=== PATIENT | male | born 1960 | race Caucasian/White ===

== ENCOUNTER → 2018-08-21 | Outpatient (CLI) | payer BC, OTHER ==
[2018-08-21 15:46] LABS: DIRECT BILIRUBIN 0.4 mg/dL (0.0-0.4); TOTAL BILIRUBIN 1.3 mg/dL (0.2-1.3); TOTAL PROTEIN 6.5 g/dL (6.3-8.2)
== END ==
LOC: LAB 15:11
PROVIDERS: Physician Assistant
DX: Z79.899 Other long term (current) drug therapy (principal)

== ENCOUNTER → 2018-09-18 | Outpatient (CLI) | payer BC, OTHER ==
[2018-09-18 16:59] LABS: ALBUMIN 4.3 g/dL (3.5-5.0); DIRECT BILIRUBIN 0.4 mg/dL (0.0-0.4); TOTAL BILIRUBIN 0.7 mg/dL (0.2-1.3)
== END ==
LOC: LAB 15:53
PROVIDERS: Physician Assistant
DX: Z79.899 Other long term (current) drug therapy (principal)

== ENCOUNTER → 2018-10-11 | Outpatient (CLI) | payer BC, OTHER | LOC: RAD 10:22 | DX: J45.30 Mild persistent asthma, uncomplicated (principal); G47.33 Obstructive sleep apnea (adult) (pediatric); R91.8 Other nonspecific abnormal finding of lung field ==

== ENCOUNTER → 2018-11-20 | Day surgery (SDC) | payer OTHER, BC | LOC: MSO 11:56 | DX: Z12.11 Encounter for screening for malignant neoplasm of colon (principal); K62.1 Rectal polyp; Z86.010 Personal history of colon polyps; K21.9 Gastro-esophageal reflux disease without esophagitis; Z79.82 Long term (current) use of aspirin; E78.00 Pure hypercholesterolemia, unspecified; Z87.891 Personal history of nicotine dependence; G47.33 Obstructive sleep apnea (adult) (pediatric); J45.909 Unspecified asthma, uncomplicated; M72.2 Plantar fascial fibromatosis | CPT/HCPCS: 00811; J2704; J3010; J7120 ==

== ENCOUNTER → 2018-12-20 | Outpatient (CLI) | payer OTHER, BC ==
[2018-12-20 16:54] LABS: EOS # 0.2 (0.04-0.40); EOS % 3.3 % (0.0-4.0); HEMATOCRIT 43.7 % (42.0-52.0); LYMPH# 0.9 (1.50-4.00); MEAN CELL VOLUME 87 fl (78-100); MEAN CORPUSCULAR HEMOGLOBIN 30 pg (27-31); MEAN CORPUSCULAR HGB CONC 34 g/dL (33-37); MEAN PLATELET VOLUME 8.6 fl (7.4-10.4); MONO # 0.4 (0.20-0.80); NEU # 3.4 (1.40-6.50); PLATELET COUNT 183 K/mm3 (130-400); RED BLOOD COUNT 5.03 M/mm3 (4.20-5.60); RED CELL DISTRIBUTION WIDTH 14.6 % (11.5-14.5); WHITE BLOOD COUNT 4.9 K/mm3 (4.8-10.8)
[2018-12-20 17:13] LABS: ALBUMIN 4.3 g/dL (3.5-5.0); CALCIUM 9.3 mg/dL (8.3-10.5); POTASSIUM 3.7 mmol/L (3.5-5.1); TOTAL BILIRUBIN 0.8 mg/dL (0.2-1.2); TOTAL PROTEIN 7.1 g/dL (6.4-8.3)
== END ==
LOC: LAB 16:34
PROVIDERS: Physician Assistant
DX: L03.90 Cellulitis, unspecified (principal); S80.869A Insect bite (nonvenomous), unspecified lower leg, initial encounter; R10.30 Lower abdominal pain, unspecified

== ENCOUNTER → 2020-03-18 | Outpatient (CLI) | payer BC, OTHER | LOC: LAB 10:31 | DX: Z20.828 Contact with and (suspected) exposure to other viral communicable diseases (principal) ==

== ENCOUNTER → 2021-02-05 | Outpatient (CLI) | payer BC, OTHER ==
[~2021-02-05] MED LIST: MORGIDOX 1X100100 MG PO; PREDNISONE20 M1 PO; PRILOSEC 20MG20 MG PO; PROAIR HFA0.09 MG/AC IH; SINGULAIR 110 MG/TAB PO; SYMBICORT1 AE3 IH
[2021-02-05 10:17] LABS: BASO # 0.02 (0.02-0.10); EOS # 0.07 (0.04-0.40); EOS % 1.5 % (0.0-4.0); HEMATOCRIT 44.1 % (42.0-52.0); HEMOGLOBIN 14.8 g/dL (13.5-18.0); LYMPH# 0.85 (1.50-4.00); MEAN CELL VOLUME 87 fl (78-100); MEAN CORPUSCULAR HEMOGLOBIN 29 pg (27-31); MEAN CORPUSCULAR HGB CONC 34 g/dL (33-37); MEAN PLATELET VOLUME 8.7 fl (7.4-10.4); MONO # 0.44 (0.20-0.80); NEU # 3.41 (1.40-6.50); PLATELET COUNT 169 K/mm3 (130-400); RED BLOOD COUNT 5.08 M/mm3 (4.20-5.60); RED CELL DISTRIBUTION WIDTH 13.5 % (11.5-14.5); WHITE BLOOD COUNT 4.8 K/mm3 (4.8-10.8)
[2021-02-05 10:18] LABS: ALBUMIN 4.2 g/dL (3.4-4.8)
[2021-02-05 10:19] LABS: CALCIUM 9.2 mg/dL (8.3-10.5)
[2021-02-05 10:21] LABS: TOTAL PROTEIN 7.1 g/dL (6.2-8.1)
[2021-02-05 10:22] LABS: TOTAL BILIRUBIN 0.7 mg/dL (0.2-1.2)
== END ==
LOC: LAB 09:52
PROVIDERS: Physician Assistant
DX: R22.1 Localized swelling, mass and lump, neck (principal)

== ENCOUNTER → 2021-02-09 | Outpatient (CLI) | payer BC, OTHER | LOC: RAD 13:51 | DX: R22.1 Localized swelling, mass and lump, neck (principal) ==

== ENCOUNTER → 2021-05-17 | Outpatient (CLI) | payer BC, OTHER | LOC: LAB 09:10 | DX: Z20.822 Contact with and (suspected) exposure to COVID-19 (principal) ==

== ENCOUNTER 2021-05-24 18:14 | Emergency (ER) | payer BC, OTHER ==
[~2021-05-24] VITALS: Ht 180.3 cm; Wt 127.3 kg
[2021-05-24 18:44] LABS: BASO # 0.02 K/mm3 (0.02-0.10); EOS # 0.05 K/mm3 (0.04-0.40); EOS % 0.3 % (0.0-4.0); HEMATOCRIT 40.1 % (42.0-52.0); HEMOGLOBIN 13.8 g/dL (13.5-18.0); LYMPH# 1.07 K/mm3 (1.50-4.00); MEAN CELL VOLUME 87 fl (78-100); MEAN CORPUSCULAR HEMOGLOBIN 30 pg (27-31); MEAN CORPUSCULAR HGB CONC 34 g/dL (33-37); MEAN PLATELET VOLUME 8.4 fl (7.4-10.4); MONO # 0.68 K/mm3 (0.20-0.80); NEU # 12.69 K/mm3 (1.40-6.50); PLATELET COUNT 236 K/mm3 (130-400); RED BLOOD COUNT 4.63 M/mm3 (4.20-5.60); RED CELL DISTRIBUTION WIDTH 12.6 % (11.5-14.5); WHITE BLOOD COUNT 14.6 K/mm3 (4.8-10.8)
[2021-05-24 18:58] LABS: ALBUMIN 3.7 g/dL (3.4-4.8); SODIUM 135 mmol/L (136-145)
[2021-05-24 19:00] LABS: CALCIUM 9.1 mg/dL (8.3-10.5)
[2021-05-24 19:01] LABS: GLUCOSE 108 mg/dL (75-110); TOTAL PROTEIN 7.1 g/dL (6.2-8.1)
[2021-05-24 19:02] LABS: CARBON DIOXIDE 19 mmol/L (23-31)
[2021-05-24 19:03] LABS: TOTAL BILIRUBIN 0.9 mg/dL (0.2-1.2)
[2021-05-24 19:06] LABS: AST-SGOT 29 U/L (5-34)
[2021-05-24 19:07] LABS: ALT/SGPT 53 U/L (0-55); PARTIAL THROMBOPLASTIN TIME 24.8 SECONDS (21.0-32.0); PROTHROMBIN TIME 10.7 SECONDS (9.0-12.0)
[2021-05-24 19:09] LABS: D-DIMER 1.27 mg/L FEU (0.15-0.50)
[2021-05-24 19:16] LABS: TROPONIN-I < 0.03 ng/mL (<0.030)
[2021-05-24 20:46] LABS: URINE APPEARANCE CLEAR; URINE BILIRUBIN NEGATIVE (NEGATIVE); URINE BLOOD NEGATIVE (NEGATIVE); URINE COLOR AMBER; URINE GLUCOSE NEGATIVE (NEGATIVE); URINE KETONE NEGATIVE (NEGATIVE); URINE LEUKOCYTE ESTERASE NEGATIVE (NEGATIVE); URINE NITRATE NEGATIVE (NEGATIVE); URINE PROTEIN(semi-quant) TRACE mg/dL (NEGATIVE); URINE UROBILINOGEN NORMAL (NORMAL); URINE WBC 0-1 /hpf (0-3)
[2021-05-24 20:47] LABS: URINE MUCUS PRESENT (NOT PRESENT)
[2021-05-24 21:00] VITALS: BP 129/78
[2021-05-24] MEDS ORDERED: MORGIDOX 1X100100 MG PO ×2 (21:49→21:50)
[2021-05-24] MEDS ORDERED: PREDNISONE20 M1 PO ×2 (21:49→21:50)
[2021-05-24] MEDS ORDERED: SINGULAIR 110 MG/TAB PO (23:37)
[2021-05-24] MEDS ORDERED: PROAIR HFA0.09 MG/AC IH (23:37)
[2021-05-24] MEDS ORDERED: PRILOSEC 20MG20 MG PO (23:37)
[2021-05-24] MEDS ORDERED: SYMBICORT1 AE3 IH (23:39)
== END 2021-05-24 21:15 | disposition home or self-care (01) ==
LOC: ED 18:14
PROVIDERS: Nurse Practitioner
DX: J18.9 Pneumonia, unspecified organism (principal); K21.9 Gastro-esophageal reflux disease without esophagitis; E66.9 Obesity, unspecified; Z20.822 Contact with and (suspected) exposure to COVID-19; Z68.39 Body mass index [BMI] 39.0-39.9, adult; Z79.899 Other long term (current) drug therapy
CPT/HCPCS: Q9967

== ENCOUNTER → 2021-07-01 | Outpatient (CLI) | payer BC, OTHER | LOC: RAD 06-30 09:00 | DX: K80.20 Calculus of gallbladder without cholecystitis without obstruction (principal); J12.9 Viral pneumonia, unspecified | CPT/HCPCS: Q9967 ==

== ENCOUNTER → 2022-09-13 | Outpatient (CLI) | payer BC, OTHER | LOC: LAB 13:29 | DX: R19.7 Diarrhea, unspecified (principal) ==

== ENCOUNTER → 2022-09-14 | Outpatient (CLI) | payer BC, OTHER | LOC: LAB 09:43 | PROVIDERS: Internal Medicine Gastroenterology | DX: R19.7 Diarrhea, unspecified (principal) ==

== ENCOUNTER 2023-11-09 07:47 | Inpatient (IN) | payer OTHER ==
[~2023-11-09] VITALS: Ht 185.4 cm; Wt 134.9 kg
[2023-11-09] MEDS ORDERED: SILDENAFIL CIT100 MG PO (08:08)
[2023-11-09] MEDS ORDERED: WIXELA 500-501 EACH IH (08:08)
[2023-11-09] MEDS ORDERED: ROSUVASTATIN CA10 MG PO (08:08)
[2023-11-09 08:21] LABS: ALBUMIN 3.8 g/dL (3.4-4.8)
[2023-11-09 08:22] LABS: SODIUM 136 mmol/L (136-145)
[2023-11-09 08:23] LABS: CALCIUM 9.3 mg/dL (8.3-10.5)
[2023-11-09] MEDS ORDERED: MULTIVITAMIN1 EACH PO (08:23)
[2023-11-09 08:24] LABS: GLUCOSE 113 mg/dL (75-110); TOTAL PROTEIN 7.2 g/dL (6.2-8.1)
[2023-11-09 08:25] LABS: CARBON DIOXIDE 20 mmol/L (23-31)
[2023-11-09 08:26] LABS: TOTAL BILIRUBIN 0.6 mg/dL (0.2-1.2)
[2023-11-09 08:29] LABS: AST-SGOT 21 U/L (5-34)
[2023-11-09 08:31] LABS: ALT/SGPT 27 U/L (0-55)
[2023-11-09 08:47] LABS: BASO # 0.02 K/mm3 (0.02-0.10); EOS # 0.03 K/mm3 (0.04-0.40); EOS % 0.3 % (0.0-4.0); HEMATOCRIT 40.2 % (42.0-52.0); HEMOGLOBIN 13.4 g/dL (13.5-18.0); LYMPH# 0.71 K/mm3 (1.50-4.00); MEAN CELL VOLUME 81 fl (78-100); MEAN CORPUSCULAR HEMOGLOBIN 27 pg (27-31); MEAN CORPUSCULAR HGB CONC 33 g/dL (33-37); MEAN PLATELET VOLUME 9.9 fl (7.4-10.4); MONO # 0.43 K/mm3 (0.20-0.80); NEU # 7.85 K/mm3 (1.40-6.50); PLATELET COUNT 186 K/mm3 (130-400); RED BLOOD COUNT 4.96 M/mm3 (4.20-5.60); RED CELL DISTRIBUTION WIDTH 14.1 % (11.5-14.5); WHITE BLOOD COUNT 9.1 K/mm3 (4.8-10.8)
[2023-11-09 08:54] LABS: TROPONIN-I < 0.030 ng/mL (0.00-0.033)
[2023-11-09 09:00] LABS: D-DIMER 1.25 mg/L FEU (0.15-0.50)
[2023-11-09] MEDS ORDERED: Albuterol/Ipratropium 3 MG-0.5 MG/3 ML Neb Soln IH ONE (09:00)
[2023-11-09] MEDS ORDERED: NS 1,000 ML IV SCH (09:00)
[2023-11-09] MEDS ORDERED: cefTRIAXone 1 G in Water For Injection,Sterile 10 ML IV ONE (09:00)
[2023-11-09] MEDS ORDERED: Iohexol 350 - 100 ML VIAL IV ONE (09:54)
[2023-11-09 10:00] VITALS: BP 132/75
[2023-11-09] MEDS ORDERED: Azithromycin 500 MG in NS 250 ML IV SCH (10:00)
[2023-11-09] MEDS ORDERED: Acetaminophen 325 MG TAB PO PRN (10:00)
--- NOTE | 2023-11-09 10:00 | NUR ---
PATIENT ADMITTED FROM ED WITH RLL PNEUMONIA. IV PATENT TO LEFT FOREARM, NS RUNNING AT 125ML/HR. PENDING CHEST CT RESULTS AT THIS TIME. PATIENT ON 5L VIA SIMPLE MASK, O2 SATURATION AT 94%. TELEMETRY IN PLACE, NSR TACHYCARDIC 100-110s. CONTINUOUS O2 IN PLACE. ASSESSMENT COMPELTED. PATIENT ORIENTED TO ROOM AND HOSPITAL POLICIES. VERBALIZED UNDERSTANDING. PATIENT REPORTS IS TO BRING CPAP. PENDING BLOOD CUTLURES AT THIS TIME. NEEDS MET. FALL PRECAUTIONS IN PLACE.
[2023-11-09] MEDS ORDERED: Albuterol/Ipratropium 3 MG-0.5 MG/3 ML Neb Soln IH PRN (10:15)
--- NOTE | 2023-11-09 10:45 | NUR ---
PATIENTS PITO BRINGS IN CPAP AT THIS TIME.
[2023-11-09 13:59] VITALS: BP 133/70
[2023-11-09] MEDS ORDERED: Albuterol 90 MCG/PUFF MDI IH PRN (14:30)
[2023-11-09 17:46] VITALS: BP 146/77
--- NOTE | 2023-11-09 19:07 | NUR ---
REPORT TO ELIUD SIMON.
[2023-11-09 22:10] VITALS: BP 145/82
--- NOTE | 2023-11-09 22:50 | NUR ---
PT RESTING COMFORTABLY IN BED. STATED THAT HE WAS BREATING A LOT BETTER THAN HE WAS EARLIER TODAY. O2 RUNNING AT 5L VIA NC. MEDICATION TAKEN PO. ASSESSMENT COMPLETE. CPAP DID NOT HAVE ATTACHEMENT TO BLEED OXYGEN. TALKED WITH PT ABOUT THIS AND HE SAID HE WOULD JUST WEAR HIS NC UNDER HIS MASK. WILL MONITOR O2 LEVELS. SAT STAYING ABOVE 96. 3/10 PAIN IN BACK. PT TO BRING INHALER IN THE AM. 18 Gauge in LAC. CALL LIGHT WITHIN REACH.
[2023-11-10 01:34] VITALS: BP 138/77
[2023-11-10 05:53] VITALS: BP 131/73
[2023-11-10] MEDS ORDERED: cefTRIAXone 1 G in Water For Injection,Sterile 10 ML IV SCH (07:00)
[2023-11-10 07:53] LABS: BASO # 0.02 K/mm3 (0.02-0.10); EOS # 0.04 K/mm3 (0.04-0.40); EOS % 0.4 % (0.0-4.0); HEMATOCRIT 34.3 % (42.0-52.0); LYMPH# 0.69 K/mm3 (1.50-4.00); MEAN CELL VOLUME 83 fl (78-100); MEAN CORPUSCULAR HEMOGLOBIN 27 pg (27-31); MEAN CORPUSCULAR HGB CONC 33 g/dL (33-37); MEAN PLATELET VOLUME 8.7 fl (7.4-10.4); MONO # 0.48 K/mm3 (0.20-0.80); NEU # 7.75 K/mm3 (1.40-6.50); PLATELET COUNT 215 K/mm3 (130-400); RED BLOOD COUNT 4.16 M/mm3 (4.20-5.60)
[2023-11-10 08:00] LABS: CALCIUM 8.9 mg/dL (8.3-10.5)
[2023-11-10 08:11] LABS: HEMOGLOBIN 11.4 g/dL (13.5-18.0)
[2023-11-10] MEDS ORDERED: Multivitamin TAB PO SCH (09:00)
[2023-11-10 09:23] VITALS: BP 132/77
--- NOTE | 2023-11-10 13:22 | NUR ---
Jl is retired. He is to his bride, Bev. He uses [facility] as his pharmacy. He does not use and DME at home. He is independent on all ADL's He would like to go home after discharge. His PCP Suzanne Cherry.
[2023-11-10 14:00] VITALS: BP 114/69
--- NOTE | 2023-11-10 14:50 | NUR ---
PATIENT ABLE TO MAINTAIN OXYGEN LEVEL OF 94% ON ROOM AIR WITH AMBUALTION. OXYGEN REMOVED AT THIS TIME AND CONTINUOUS O2 MONITORING REMAINS.
[2023-11-10 18:15] VITALS: BP 125/73
--- NOTE | 2023-11-10 19:00 | NUR ---
REPORT TO ELIUD SCHULZ.
[2023-11-10] MEDS ORDERED: Montelukast 10 MG TAB PO SCH (21:00)
[2023-11-10 22:00] VITALS: BP 147/79
[2023-11-11 02:33] VITALS: BP 135/63
[2023-11-11 06:04] VITALS: BP 135/74
[2023-11-11 10:15] VITALS: BP 137/77
--- NOTE | 2023-11-11 10:53 | NUR ---
Pt getting into the shower with SBA help from [employer]. All tele stickers have been removed and the 02 sensor has been taken off. Pt is ranging between 90%-92% RA. Per Dr. Son mas to remove tele and D/C orders. Pt was given a pulse ox and educated on when and how to use it. Pt educated to call for a nurse if his O2 gets under 90% if the level does not increase after a few deep breaths. Pt and spouse voices understanding. Advised to call for nurse if they have any questions or cocnerns.
[2023-11-11 14:09] VITALS: BP 123/74
[2023-11-11 18:01] VITALS: BP 137/81
[2023-11-11 21:40] VITALS: BP 147/80
[2023-11-12] VITALS (7 sets, daily range): BP systolic 110–154; BP diastolic 68–84
[2023-11-12 06:37] LABS: BASO # 0.02 K/mm3 (0.02-0.10); EOS # 0.11 K/mm3 (0.04-0.40); EOS % 1.4 % (0.0-4.0); HEMATOCRIT 36.7 % (42.0-52.0); LYMPH# 0.67 K/mm3 (1.50-4.00); MEAN CELL VOLUME 82 fl (78-100); MEAN CORPUSCULAR HEMOGLOBIN 27 pg (27-31); MEAN CORPUSCULAR HGB CONC 33 g/dL (33-37); MEAN PLATELET VOLUME 8.5 fl (7.4-10.4); MONO # 0.42 K/mm3 (0.20-0.80); NEU # 6.54 K/mm3 (1.40-6.50); PLATELET COUNT 256 K/mm3 (130-400); RED BLOOD COUNT 4.48 M/mm3 (4.20-5.60); RED CELL DISTRIBUTION WIDTH 13.8 % (11.5-14.5); WHITE BLOOD COUNT 7.8 K/mm3 (4.8-10.8)
[2023-11-12] MEDS ORDERED: Azithromycin 250 MG TAB PO SCH (09:00)
--- NOTE | 2023-11-12 11:00 | NUR ---
Pt ambulating in the hallway with FUR TRIMMER by side, using pulse ox to see what his o2 level is with ambulating. FUR TRIMMER reports pt sat at about 90% when ambulating about 75 feet before o2 started to decrease to 87% - FUR TRIMMER reports pt was working harder to breath at this time, then after a few deep breaths O2 went up to 89%. Once pt sat back in recliner pt went back up to 90-92%. LIYA Lama notified.
--- NOTE | 2023-11-12 11:41 | NUR ---
Pt Daina NICKERSON ok to D/C INT at this time. INT taken out, tip in tact, no concerns.
[2023-11-13 02:29] VITALS: BP 144/80
[2023-11-13 05:33] VITALS: BP 135/82
[2023-11-13 10:00] VITALS: BP 127/76
[2023-11-13] MEDS ORDERED: AMOXICILLIN AND1 TA2 PO (11:59)
[2023-11-13 13:49] VITALS: BP 127/68
--- NOTE | 2023-11-13 13:51 | NUR ---
PATIENT DISCHARGED BACK TO HOME WITH HIS . HE WAS GIVEN BACK HIS HOME MEDICATION INCLUDING FIBER AND WIXELA INHALOR. DISCHARGE INSTRUCTIONS GIVEN TO PATIENT AND HE VOICED UNDERSTANDING. PATIENT TOOK HOME ALL BELONGINGS IN ROOM. DROVE TO ER EXIT AND PATIENT AMBULATED TO ER EXIT. PATIENT DENIES ANY QUESTIONS OR CONCERNS.
== END 2023-11-13 14:10 | disposition home or self-care (01) | DRG 195 ==
LOC: ED 07:47 → MED/SURG 09:03
PROVIDERS: Family Medicine; ADMIT Nurse Practitioner
DX: J18.9 Pneumonia, unspecified organism (principal); R09.02 Hypoxemia; K21.9 Gastro-esophageal reflux disease without esophagitis; E66.9 Obesity, unspecified; G47.33 Obstructive sleep apnea (adult) (pediatric)
CPT/HCPCS: J0456; J0696; J7030; J7050; Q9967

== ENCOUNTER → 2024-02-14 | Outpatient (CLI) | payer MEDICARE, OTHER ==
[~2024-02-14] MED LIST changes: +AMOXICILLIN AND1 TA2 PO; +MULTIVITAMIN1 EACH PO; +ROSUVASTATIN CA10 MG PO; +SILDENAFIL CIT100 MG PO; +WIXELA 500-501 EACH IH
[2024-02-14 11:22] LABS: BASO # 0.02 K/mm3 (0.02-0.10); EOS # 0.05 K/mm3 (0.04-0.40); EOS % 1.2 % (0.0-4.0); HEMATOCRIT 40.9 % (42.0-52.0); LYMPH# 0.74 K/mm3 (1.50-4.00); MEAN CELL VOLUME 84 fl (78-100); MEAN CORPUSCULAR HEMOGLOBIN 27 pg (27-31); MEAN CORPUSCULAR HGB CONC 32 g/dL (33-37); MEAN PLATELET VOLUME 8.4 fl (7.4-10.4); MONO # 0.37 K/mm3 (0.20-0.80); NEU # 2.93 K/mm3 (1.40-6.50); PLATELET COUNT 160 K/mm3 (130-400); WHITE BLOOD COUNT 4.1 K/mm3 (4.8-10.8)
== END ==
LOC: LAB 11:04
PROVIDERS: Physician Assistant
DX: D64.9 Anemia, unspecified (principal)

== ENCOUNTER → 2024-02-23 | Outpatient (CLI) | payer OTHER ==
[2024-02-23 23:18] LABS: IGM,SERUM 160 mg/dL (22-240); IMMUNOGLOBULIN A 112 mg/dL (101-645); IMMUNOGLOBULIN E, TOTAL <25 IU/mL (0-100); IMMUNOGLOBULIN G 888 mg/dL (540-1822)
== END ==
LOC: LAB 10:35
PROVIDERS: Physician Assistant
DX: Z87.01 Personal history of pneumonia (recurrent) (principal)

== ENCOUNTER → 2024-03-04 | Outpatient (CLI) | payer OTHER | LOC: RAD 12:58 | DX: Z87.01 Personal history of pneumonia (recurrent) (principal) ==